=== PATIENT | female | born 1975 | race Caucasian/White ===

== ENCOUNTER → 2021-08-14 | Outpatient (CLI) | payer OTHER ==
[~2021-08-14] MED LIST: ACID CONTROL150 MG PO; CARBIDOPA-LEVO1 EAC6 PO; CELEXA40 MG PO; COLACE 100MG C100 MG PO; COLACE100 MG PO; ESOMEPRAZOLE MA20 MG PO; FLUTICASONE SPRAY; LASIX TAB 20 MG20 MG PO; LIPITOR40 MG PO; METOPROLOL SUCC50 MG PO; MOBIC15 MG PO; MOBIC7.5 MG PO; MONTELUKAST SOD10 MG PO; NORCO 10-325 T1 EACH PO; NORCO 5-325 TA1 EACH PO; PHENOBARBITAL30 MG PO; PROTONIX40 MG PO; QUESTRAN LIGHT 44 GM PO; SYNTHROID150 MCG PO; VENTOLIN HFA 66.7 GM INH; ZOCOR20 MG PO; ZOFRAN4 MG PO
== END ==
LOC: HEART CORB 13:00
DX: R07.2 Precordial pain (principal); R06.02 Shortness of breath
CPT/HCPCS: 93306